=== PATIENT | male | born 1980 | race Caucasian/White ===

== ENCOUNTER 2018-02-16 16:18 | Emergency (ER) | payer BC ==
[2018-02-16] MEDS: SOD CHLORIDE 0.9% 1,000 ML IV ×2 (17:13→18:55)
[2018-02-16 17:34] LABS: HEMATOCRIT 42.5 % (42.0-52.0); HEMOGLOBIN 13.8 g/dl (14.0-18.0); MEAN CORPUSCULAR HEMOGLOBIN 29.7 pg (29.0-33.0); MEAN CORPUSCULAR HGB CONC 32.5 g/dl (32.0-37.0); MEAN CORPUSCULAR VOLUME 91.4 fl (82.0-101.0); MEAN PLATELET VOLUME 8.5 fl (7.4-10.4); PLATELET COUNT 190 10^3/UL (140-415); RED BLOOD COUNT 4.65 10^6/ul (4.70-6.10)
[2018-02-16 17:34] LABS: WHITE BLOOD COUNT 4.3 10^3/ul (4.8-10.8)
[2018-02-16] MEDS: ONDANSETRON (ODT) 4 MG TAB ODT (17:49)
[2018-02-16] MEDS: morphine 4 MG/ML VIAL IV (17:49)
[2018-02-16 18:08] LABS: ADD MAN DIFF? YES
[2018-02-16 18:13] LABS: ALANINE AMINOTRANSFERASE 23 IU/L (13-69); ALBUMIN 3.9 g/dl (3.3-4.9); ALBUMIN/GLOBULIN RATIO 1.34; ALKALINE PHOSPHATASE 61 IU/L (42-121); ANION GAP 10 (5-13); ASPARTATE AMINO TRANSFERASE 19 IU/L (15-46); BILIRUBIN,INDIRECT 0.4 mg/dl (0-1.1); BILIRUBIN,TOTAL 0.4 mg/dl (0.2-1.3); BLOOD UREA NITROGEN 14 mg/dl (7-20); CALCIUM 9.1 mg/dl (8.4-10.2); CARBON DIOXIDE 32 mmol/L (21-31); CHLORIDE 101 mmol/L (97-110); CREATININE 0.81 mg/dl (0.61-1.24); Estimated GFR > 60 mL/min (>60); GLUCOSE 99 mg/dl (70-220); LIPASE 24 U/L (23-300); POTASSIUM 4.3 mmol/L (3.5-5.1); SODIUM 143 mmol/L (135-144); TOTAL PROTEIN 6.8 g/dl (6.1-8.1)
[2018-02-16] MEDS: HYDROmorphONE 2 MG/ML SYG IV (18:48)
[2018-02-16] MEDS: PIPER-TAZO 3.375 GM IV (PMX) 100 ML IVPB (18:55)
[2018-02-16 19:41] LABS: BAND NEUTROPHILS #M 0.3 10^3/ul (0.0-0.6); BAND NEUTROPHILS % (M) 9 % (0-4); EOSINOPHILS % (M) 3 % (0-7); ERYTHROBLAST% (NRBC) (M) 1 % (0-0); GIANT THROMBO% (M) 1 % (0-0); LYMPHOCYTES #M 1.6 10^3/ul (0.8-2.9); LYMPHOCYTES % (M) 39 % (15-51); MONOCYTE #M 0.4 10^3/ul (0.3-0.9); MONOCYTES % (M) 11 % (0-11); PLATELET MORPHOLOGY COMMENT @See below; SEG NEUT #M 1.6 10^3/ul (1.6-7.5); SEGMENTED NEUTROPHILS (M) % 38 % (39-77); SMUDGE%M 38 % (0-0)
== END 2018-02-16 20:19 | disposition home or self-care (01) ==
LOC: FTE 16:18
DX: K52.9 Noninfective gastroenteritis and colitis, unspecified (principal)
CPT/HCPCS: 36415; 74176; 80053; 83690; 85025; 96374; 96375; 99285-25